=== PATIENT | male | born 1950 | race Caucasian/White ===

== ENCOUNTER → 2017-09-04 | Outpatient (CLI) | payer MEDICARE, OTHER ==
[~2017-09-04] MED LIST: AMO500 PO; AMOX500T10 PO; ASPI-715 PO; BEN10 PO; BENA20TA8 PO; CEP500 PO; COMBIVENT INHALER INH; CREST PO; DUL100/5PT INH; EZE10 PO; FAM20 PO; FLUT1AER INH; GEMF600T91 PO; IBU600 PO; LANS15CA38 PO; LEV125 PO; LEVO100T95 PO; LEVOTHYROXIN; LOR5/325 PO; MULT-977 PO; NIAC500T81 PO; PANT20TA26 PO; PANT40TA65 PO; PRE20 PO; ROS10 PO; ROSU20TA23 PO; ROSU40TA10 PO; TRILI135PT PO
[2017-09-04 11:16] LABS: PLATELET COUNT, AUTOMATED 232 K/uL (150-450)
[2017-09-04 11:33] LABS: LDL CHOLESTEROL 86 mg/dl
== END ==
LOC: LAB 10:57
PROVIDERS: ATTEND Internal Medicine
DX: Z12.5 Encounter for screening for malignant neoplasm of prostate (principal); E11.9 Type 2 diabetes mellitus without complications; E78.5 Hyperlipidemia, unspecified
CPT/HCPCS: 36415; 81001; 83036; 84443; 85025; G0103; 82040; 82247; 82310; 82374; 82435; 82465; 82565; 82947; 83718; 84075; 84132; 84153; 84155; 84295; 84450; 84460; 84478; 84520

== ENCOUNTER → 2017-12-10 | Outpatient (CLI) | payer MEDICARE, OTHER ==
[2017-12-10 11:10] LABS: LDL CHOLESTEROL 79 mg/dl
== END ==
LOC: LAB 10:31
PROVIDERS: ATTEND Internal Medicine
DX: I10 Essential (primary) hypertension (principal); K21.9 Gastro-esophageal reflux disease without esophagitis; E78.5 Hyperlipidemia, unspecified; E03.9 Hypothyroidism, unspecified; R73.03 Prediabetes
CPT/HCPCS: 36415; 82040; 82247; 82310; 82374; 82435; 82465; 82565; 82947; 83036; 83718; 84075; 84132; 84155; 84295; 84443; 84450; 84460; 84478; 84520

== ENCOUNTER → 2018-08-11 | Outpatient (CLI) | payer MEDICARE, OTHER ==
[~2018-08-11] MED LIST changes: +BENA20TA64 PO; -BENA20TA8 PO; -GEMF600T91 PO; +GEMF600T96 PO; -ROSU40TA10 PO; +ROSU40TA2 PO
[2018-08-11 10:02] LABS: LDL CHOLESTEROL 65 mg/dl; PLATELET COUNT, AUTOMATED 233 K/uL (150-450)
== END ==
LOC: LAB 09:11
PROVIDERS: ATTEND Internal Medicine
DX: Z12.5 Encounter for screening for malignant neoplasm of prostate (principal); E11.9 Type 2 diabetes mellitus without complications; I10 Essential (primary) hypertension; E78.5 Hyperlipidemia, unspecified; E03.9 Hypothyroidism, unspecified
CPT/HCPCS: 36415; 81001; 83036; 84439; 84443; 85025; G0103; 82040; 82247; 82310; 82374; 82435; 82465; 82565; 82947; 83718; 84075; 84132; 84153; 84155; 84295; 84450; 84460; 84478; 84520

== ENCOUNTER → 2019-02-18 | Outpatient (CLI) | payer MEDICARE, OTHER ==
[~2019-02-18] MED LIST changes: +LEV112 PO; +NYST15CR32 TP; +ROSU40TA18 PO
[2019-02-18 09:22] LABS: PLATELET COUNT, AUTOMATED 231 K/uL (150-450)
[2019-02-18 09:51] LABS: LDL CHOLESTEROL 62 mg/dl
== END ==
LOC: LAB 08:56
PROVIDERS: ATTEND Internal Medicine
DX: E03.9 Hypothyroidism, unspecified (principal); E11.9 Type 2 diabetes mellitus without complications; E78.5 Hyperlipidemia, unspecified; I10 Essential (primary) hypertension
CPT/HCPCS: 36415; 81001; 82040; 82247; 82310; 82374; 82435; 82465; 82565; 82947; 83036; 83718; 84075; 84132; 84155; 84295; 84439; 84443; 84450; 84460; 84478; 84520; 85025